=== PATIENT | male | born 1985 | race Hispanic/Latino ===

== ENCOUNTER 2018-02-16 05:12 | Emergency (ER) | payer SELFPAY ==
--- OUTSIDE RECORDS SUMMARY | 2018-02-16 05:15 | XMS REPORT ---
:1985 [facility] Address [address] [place]. [address] [place] [id number] Care Team Providers Name Role Phone Unavailable Unavailable Unavailable Problems This patient has no known problems. Allergies, Adverse Reactions, Alerts This patient has no known allergies or adverse reactions. Medications This patient has no known medications. Encounters Start End Encounter Admission Attending Care Care Encounter Date/Time Date/Time Type Type Clinicians Facility Department ID 2017-05-23 2017-05-[address] [facility] [id number] 00:00:00 00:00:00 2017-04-23 2017-04-[address] [facility] [id number] 00:00:00 00:00:00 2017-04-05 2017-04-[address] [facility] [id number] 00:00:00 00:00:00 2017-04-05 2017-04-[address] [facility] [id number] 00:00:00 00:00:00 2017-03-20 2017-03-[address] [facility] [id number] 08:28:36 08:28:36
[2018-02-16] MEDS ORDERED: FLUORESCEIN SODIUM 0.6 MG/WRAP ONE (05:19)
[2018-02-16] MEDS ORDERED: TETRACAINE HCL 0.5% 2ML OPTH ONE (05:20)
--- NOTE | 2018-02-16 05:38 | ER ---
Nurse's Notes [facility] Name: David Franco Age: 32 yrs Sex: Male : 1985 Arrival Date: 02/16/2018 Time: 05:14 Bed 17 Private MD: Diagnosis: Injury of conjunctiva and corneal abrasion without foreign body Presentation: 02/16 05:31 Presenting complaint: Patient states: I was cutting a plastic ball around midnight with tl2 a saw and some of the plastic material broke off and hit both of my eyes. My right eye is fine but it hurts to open my left eye. Denies blurry vision or vision changes. Transition of care: patient was not received from another setting of care. Onset of symptoms was February 16, 2018 at 00:00. Care prior to arrival: None. 05:31 Method Of Arrival: Ambulatory tl2 05:31 Acuity: NORMAN 4 tl2 Triage Assessment: 05:33 General: Appears in no apparent distress. uncomfortable, Behavior is calm, cooperative, tl2 appropriate for age. Pain: Complains of pain in left eye. EENT: Eyes are tearing on outer aspect of conjuctiva of left eye, iris of left eye and inner aspect of conjunctiva of left eye Sclera/Cornea are reddened in outer aspect of conjuctiva of left eye, iris of left eye and inner aspect of conjunctiva of left eye. Neuro: Level of Consciousness is awake, alert, obeys commands, Oriented to person, place, time, situation. Respiratory: Airway is patent Respiratory effort is even, unlabored, Respiratory pattern is regular, symmetrical. Derm: Skin is pink, warm \T\ dry. Historical: - Allergies: 05:33 No Known Allergies; tl2 - Home Meds: 05:33 None [Active]; tl2 - PMHx: 05:33 None; tl2 - PSHx: 05:33 None; tl2 - Immunization history:: Adult Immunizations up to date. - Social history:: Smoking status: Patient/guardian denies using tobacco. - Family history:: not pertinent. Screenin:36 Abuse screen: Denies threats or abuse. Nutritional screening: No deficits noted. tl2 Tuberculosis screening: No symptoms or risk factors identified. Fall Risk None identified. Assessment: 05:36 General: see triage assessment. tl2 Vital Signs: 05:33 BP 141 / 89; Pulse 64; Resp 18; Temp 98.1(O); Pulse Ox 100% on R/A; Weight 99.79 kg; tl2 Height 5 ft. 10 in. (177.80 cm); Pain 6/10; 05:54 BP 125 / 79; Pulse 61; Resp 17; Temp 98.1; Pulse Ox 100% ; Pain 2/10; tl1 05:33 Body Mass Index 31.57 (99.79 kg, 177.80 cm) tl2 ED Course: 05:14 Patient arrived in ED. do 05:25 Cesario Menjivar MD is Attending Physician. ma2 05:32 Triage completed. tl2 05:33 Arm band placed on right wrist. tl2 05:36 Patient has correct armband on for positive identification. Bed in low position. Call tl2 light in reach. Side rails up X 1. 05:36 Assist provider with eye exam of left eye. using fluorescein stain, Performed by tl2 Cesario Menjivar MD Patient tolerated well. 05:40 Marsha Teague RN is Primary Nurse. tl2 05:59 Patient did not have IV access during this emergency room visit. tl1 Administered Medications: 05:43 Drug: Tetracaine Drops 0.5 % 1 drops Route: Ophthalmic; Site: left eye; tl2 05:59 Follow up: Response: No adverse reaction; Marked relief of symptoms; Pain is decreased tl1 05:43 Drug: Fluorescein Strip 1 strip Route: Ophthalmic; Site: left eye; tl2 05:58 Follow up: Response: No adverse reaction; Marked relief of symptoms tl1 Outcome: 05:38 Discharge ordered by . ma2 05:58 Patient left the ED. tl1 05:59 Discharged to home ambulatory. tl1 05:59 Condition: stable 05:59 Discharge instructions given to patient, Instructed on discharge instructions, follow up and referral plans. medication usage, Demonstrated understanding of instructions, follow-up care, medications, Prescriptions given X 2. Signatures: Lisa Kaur RN RN tl1 Willow Fischer Taylor, RN RN tl2 Cesario Menjivar MD MD [facility]
--- NOTE | 2018-02-16 05:38 | EDPHYS ---
Physician Documentation [facility] Name: David Franco Age: 32 yrs Sex: Male : 1985 Arrival Date: 02/16/2018 Time: 05:14 Bed 17 Private MD: ED Physician Cesario Menjivar HPI: 02/16 05:34 This 32 yrs old Male presents to ER via Ambulatory with complaints of Foreign ma2 Body In Eye. 05:34 The patient is experiencing tearing, The patient sustained an abrasion, to both eyes, ma2 caused by was cutting a plastic and all pieces of plastic flue to both eyes started to have irritation both eyes . Onset: The symptoms/episode began/occurred suddenly, gradually, 4 hour(s) ago. Duration: the symptoms are continuous. Associated signs and symptoms: Pertinent positives: Pertinent negatives: None. chills, dizziness, fever, runny nose. Patient does not utilize any form of vision correction. Severity of symptoms: At their worst the symptoms were mild. The patient has not experienced similar symptoms in the past. Historical: - Allergies: 05:33 No Known Allergies; tl2 - Home Meds: 05:33 None [Active]; tl2 - PMHx: 05:33 None; tl2 - PSHx: 05:33 None; tl2 - Immunization history:: Adult Immunizations up to date. - Social history:: Smoking status: Patient/guardian denies using tobacco. - Family history:: not pertinent. ROS: 05:34 Constitutional: Negative for fever, chills, and weight loss. ma2 05:34 Eyes: Positive for tearing, burning, Negative for acute changes, blurry vision, discharge, injury or acute deformity, itching, matting, pain. 05:34 All other systems are negative. Exam: 05:34 Visual Acuity: Visual acuity is within normal limits. ma2 05:34 Constitutional: This is a well developed, well nourished patient who is awake, alert, and in no acute distress. Head/Face: Normocephalic, atraumatic. ENT: Nares patent. No nasal discharge, no septal abnormalities noted. Tympanic membranes are normal and external auditory canals are clear. Oropharynx with no redness, swelling, or masses, exudates, or evidence of obstruction, uvula midline. Mucous membranes moist. Neck: Trachea midline, no thyromegaly or masses palpated, and no cervical lymphadenopathy. Supple, full range of motion without nuchal rigidity, or vertebral point tenderness. No Meningismus. Chest/axilla: Normal chest wall appearance and motion. Nontender with no deformity. No lesions are appreciated. 05:34 Eyes: Periorbital structures: appear normal, Pupils: no acute changes, Extraocular movements: no acute changes, Conjunctiva: tearing noted, Corneas: abrasion, that is small, on the left, on the right, Sclera: no appreciated abnormality, Anterior chamber: normal, Lids and lashes: appear normal, Visual leblanc: are intact. Vital Signs: 05:33 BP 141 / 89; Pulse 64; Resp 18; Temp 98.1(O); Pulse Ox 100% on R/A; Weight 99.79 kg; tl2 Height 5 ft. 10 in. (177.80 cm); Pain 6/10; 05:54 BP 125 / 79; Pulse 61; Resp 17; Temp 98.1; Pulse Ox 100% ; Pain 2/10; tl1 05:33 Body Mass Index 31.57 (99.79 kg, 177.80 cm) tl2 MDM: 05:25 Patient medically screened. ma2 05:34 Differential diagnosis: Corneal abrasion of Corneal ulcer of Data reviewed: vital id2 signs, nurses notes. Counseling: I had a detailed discussion with the patient and/or guardian regarding: the historical points, exam findings, and any diagnostic results supporting the discharge/admit diagnosis, the need for outpatient follow up. 02/16 05:42 Order name: Eye Tray; Complete Time: 05:43 tl2 Administered Medications: 05:43 Drug: Tetracaine Drops 0.5 % 1 drops Route: Ophthalmic; Site: left eye; tl2 05:59 Follow up: Response: No adverse reaction; Marked relief of symptoms; Pain is decreased tl1 05:43 Drug: Fluorescein Strip 1 strip Route: Ophthalmic; Site: left eye; tl2 05:58 Follow up: Response: No adverse reaction; Marked relief of symptoms tl1 Disposition: 02/16/18 05:38 Discharged to Home. Impression: Injury of conjunctiva and corneal abrasion without foreign body. - Condition is Stable. - Prescriptions for Natural Tears (PF) - apply 1 drop by OPHTHALMIC route 3-4 times daily for 8-10 days; 1 Container. Erythromycin 5 mg/gram (0.5 %) Ophthalmic Ointment - apply 1 ribbon by OPHTHALMIC route every 8 hours; 1 tube. - Work release form, Medication Reconciliation Form, Thank You Letter, Antibiotic Education, Prescription Opioid Use form. - Follow up: Private Physician; When: Tomorrow; Reason: Continuance of care. - Problem is new. - Symptoms are unchanged. Signatures: Lisa Kaur RN RN tl1 Marsha Teague RN RN tl2 Cesario Menjivar MD MD ma2
== END 2018-02-16 05:58 | disposition home or self-care (01) ==
LOC: ER 05:12
DX: S05.00XA Injury of conjunctiva and corneal abrasion without foreign body, unspecified eye, initial encounter (principal)
CPT/HCPCS: 99283